=== PATIENT | female | born 1995 | race Caucasian/White ===

== ENCOUNTER 2023-11-02 13:06 | Emergency (ER) | payer MEDICAID ==
[~2023-11-02] VITALS: Ht 160 cm; Wt 73.0 kg
[2023-11-02 13:14] VITALS: O2SAT 98
[2023-11-02] MEDS ORDERED: AMOX-494 MT (17:31)
[2023-11-02] MEDS: IBUPROFEN 600MG TABLET PO ONE (17:44)
[2023-11-02 18:09] VITALS: BP 132/87; PULSE 98; RESP 20; TEMP 98.6
== END 2023-11-02 18:10 | disposition home or self-care (01) ==
LOC: ER 13:06
DX: H66.92 Otitis media, unspecified, left ear (principal); Z90.49 Acquired absence of other specified parts of digestive tract; Z98.890 Other specified postprocedural states
CPT/HCPCS: 81025; 99283